=== PATIENT | male | born 1960 | race Caucasian/White ===

== ENCOUNTER 2017-05-07 10:39 | Emergency (ER) | payer BC ==
[2017-05-07 10:50] VITALS: BP 153/78
--- NOTE | 2017-05-07 11:04 | UC ---
Lower Extremity/Ankle HPI - HPI Summary HPI Summary: 56 yo male with pain at achilles insertion to right heel x 1-2 days pain with wt bearing today has to use crutches no injury - History of Current Complaint Chief Complaint: UCLowerExtremity Stated Complaint: RIGHT HEEL PAIN Time Seen by Provider: 05/07/17 10:53 Hx Obtained From: Patient Onset/Duration: Gradual Onset, Lasting Days Severity Initially: Mild Severity Currently: Moderate Pain Intensity: 3 - much worse with wt bearing Pain Scale Used: 0-10 Numeric Aggravating Factor(s): Standing, Ambulation Alleviating Factor(s): Rest Able to Bear Weight: No - could yesterday - Allergies/Home Medications Allergies/Adverse Reactions: Allergies Allergy/AdvReac Type Severity Reaction Status Date / Time No Known Allergies Allergy Verified 05/07/17 10:44 Home Medications: Home Medications Ibuprofen TAB* [Advil TAB*] 400 mg PO Q6H PRN 05/07/17 [History Confirmed ] PMH/Surg Hx/FS Hx/Imm Hx - Additional Past Medical History Additional PMH: INESSA Previously Healthy: Yes - Surgical History Surgical History: Yes Surgery Procedure, Year, and Place: Hernia repair-Rt Inguinal X2 - Family History Known Family History: Positive: Hypertension, Diabetes - Social History Alcohol Use: Occasionally Substance Use Type: None Smoking Status (MU): Never Smoked Tobacco Review of Systems Constitutional: Negative Skin: Negative Eyes: Negative ENT: Negative Respiratory: Negative Cardiovascular: Negative Gastrointestinal: Negative Genitourinary: Negative Motor: Negative Neurovascular: Negative Musculoskeletal: Negative Neurological: Negative Psychological: Negative All Other Systems Reviewed And Are Negative: Yes Physical Exam Triage Information Reviewed: Yes Appearance: Well-Appearing, No Pain Distress, Well-Nourished Vital Signs: Initial Vital Signs Temp 97.2 F 05/07/17 10:45 Pulse 74 05/07/17 10:45 Resp 16 05/07/17 10:45 BP 153/78 05/07/17 10:45 Pulse Ox 100 05/07/17 10:45 Eyes: Positive: Conjunctiva Clear ENT: Positive: Hearing grossly normal. Negative: Nasal congestion, Nasal drainage, Trismus, Muffled/hoarse voice Neck: Positive: Supple, Nontender, No Lymphadenopathy Respiratory: Positive: Lungs clear, Normal breath sounds, No respiratory distress, No accessory muscle use Cardiovascular: Positive: RRR, No Murmur Musculoskeletal: Positive: ROM Intact, No Edema Neurological: Positive: Alert Psychological Exam: Normal Skin Exam: Normal Diagnostics - Radiology No standard instances Xray Interpretation: Positive (See Comments) - calcaneal spurs Radiology Interpretation Completed By: ED Physician Lower Extremity Course/Dx - Differential Dx/Diagnosis Provider Diagnoses: right achillis tendonitis Discharge - Discharge Plan Condition: Stable Disposition: HOME Patient Education Materials: Achilles Tendinitis (ED) Referrals: Artur Mora MD [Medical Doctor] - 1 Week (if not better) Additional Instructions: continue ibuprofen I suggest 600mg 4x day with food as needed for pain warm soaks with range of motion (4x day if you can) massage use CAM and crutches until you can comfortably bear wt I suggest ortho follow up in about a week if not better Images Feet (Multiple View): 1 - pain here/no swelling or defect
--- NOTE | 2017-05-07 11:31 | RAD ---
Indication: Achilles insertion pain. 4 views of the calcaneus demonstrates inferior and posterior calcaneal spurring noted. IMPRESSION: Inferior and posterior calcaneal spur are noted.
== END 2017-05-07 11:45 | disposition home or self-care (01) ==
LOC: UCCORT 10:39
DX: M76.61 Achilles tendinitis, right leg (principal)
CPT/HCPCS: 99212; G0463